=== PATIENT | female | born 1955 | race Caucasian/White ===

== ENCOUNTER 2017-09-07 12:20 | Observation (INO) | payer MEDICARE, MEDICAID ==
[~2017-09-07] VITALS: Ht 167.6 cm; Wt 109.1 kg
--- NOTE | ~2017-09-07 | OP ---
PATIENT NAME: ANTWON IBRAHIM MEDICAL RECORD: [id number] :55 LOCATION:D.M2 D.2115 ADMISSION DATE:09/07/17 SURGEON: FAISAL PAREDES MD DATE OF OPERATION: 09/08/2017 PROCEDURES: 1. Left heart catheterization. 2. Selective coronary angiography. 3. Left ventriculogram. INDICATION: Chest pain compatible with angina. PROCEDURE IN DETAIL: After informed consent was obtained and after a detailed description of risks, benefits as well as alternative therapies, the patient elected to proceed with angiogram and heart catheterization. The right radial area was prepped and draped in normal sterile fashion. Right radial artery was cannulated via modified Seldinger technique with placement of 6-Romanian sheath. All catheters exchanged through this sheath. FINDINGS: Left ventriculogram was performed in standard 30-degree LONG view, reveals good cardiac wall motion throughout all segments. Overall ejection fraction estimated 60%. SELECTIVE CORONARY ANGIOGRAPHY: Left main, left anterior descending, left circumflex, and right coronary artery are all smooth-walled vessels with no angiographic evidence of coronary artery disease. OVERALL IMPRESSION: 1. No angiographic evidence of coronary artery disease. 2. Normal left heart pressures. 3. Normal left ventricular systolic function. Chest pain is noncardiac in etiology. No further cardiac workup needs to be ascertained. TRANSINT:[id number] Voice Confirmation ID: [id number] DOCUMENT ID: [id number] FAISAL PAREDES MD at 1325 CC: [id number] DICTATION DATE: 09/08/17 0931 MANUFACTURING QUALITY TECHNICIAN: 09/08/17 1112 DIS IN 09/08/17 [address] [place] [address]
--- NOTE | ~2017-09-07 | DS ---
PATIENT:ANTWON IBRAHIM :55 MEDICAL RECORD: [id number] DISCHARGE SUMMARY ADMISSION DATE: 09/07/17 DISCHARGE DATE: 09/08/17 DIAGNOSES: 1. Chest pain compatible with angina. 2. Normal cardiac catheterization. 3. Sick sinus syndrome. HOSPITAL COURSE: Mrs. Ibrahim was admitted with chest pain; however, cardiac catheterization was normal. She as well had some bradycardia by her report and some tachyarrhythmias, but no bradycardia or tachyarrhythmias were monitored overnight. Discharged home to continue her 30-day monitor. We will follow up after the 30-day monitor. TRANSINT:[id number] Voice Confirmation ID: [id number] DOCUMENT ID: [id number] FAISAL PAREDES MD at 1325 CC: [id number] DICTATION DATE: 09/08/17929 RECEIVING ASSOCIATE: 09/08/17 1215 DIS IN 09/08/17 [id number] [place] [address]
--- NOTE | ~2017-09-07 | HEMODYNAMI ---
PATIENT:ANTWON IBRAHIM MEDICAL RECORD: [id number] : 55 [facility] ADMISSION DATE: 09/07/17 Generatedon:09/08/20179:28 Patient name: ANTWON IBRAHIM Patient #: [id number] SSN: : 1955 Date of study: 09/08/2017 Page: Of Hemodynamic Procedure Report Patient Data Patient Demographics Procedure consent was obtained First Name: ANTWON Gender: Female Last Name: PATRICE : 1955 [facility] Initial: GABRIEL Age: 61 year(s) Patient #: [id number] Race: Unknown Additional ID: [id number] Contact details [address]: [address] [place] [address] [address] State: [place] City: [place] Zip code: [address] Admission Admission Data Admission Date: 09/07/2017 Admission Time: 12:20 Room #: 2115 Procedure Procedure Types Cath Procedure Diagnostic Procedure LHC LHC w/Coronaries Procedure Description Procedure Date Procedure Date: 09/08/2017 Procedure Start Time: 9:19 Procedure End Time: 9:25 Procedure Staff Name Function Rohan Resendez MD Performing Physician Leila Morales RT Monitor Meg Pack RN Nurse Carol Barfield RT Scrub Procedure Data Cath Procedure Fluoroscopy Diagnostic fluoroscopy Total fluoroscopy Time: 1 time: 1 min min Diagnostic fluoroscopy Total fluoroscopy dose: 241 dose: 241 mGy mGy Contrast Material Contrast Material Type Amount (ml) Isovue 300 28 Entry Location Entry Primary Successful Side Size Upsize Upsize Entry Closure Guerrero ccessful Closure Location (Fr) 1 (Fr) 2 (Fr) Remarks Device Remarks Radial Right 6 Fr Mechanical artery Short Compression Estimated blood loss: 5 ml Diagnostic catheters Device Type Used For End Catheter Placement DIAGNOSTIC [place] 110cm 5 Multi-vessel Fr catheter ([id number]) Angiography Procedure Complications No complications Procedure Medications Medication Administration Route Dosage Oxygen NC 2 l/min Lidocaine 2% added to field 20 Heparin Flush Bag added to field 2 bags (1000units/500ml NS) 0.9% NaCl I.V. 100 ml/hr Versed I.V. 1 mg Fentanyl I.V. 50 mcg Radial Cocktail I.A. 1 syringe (Verapomil 2mg/Nitro 400mcg/Heparin 1500units) Hemodynamics Rest Heart Rate: 50 (bpm) Pressure Samples Time Site Value (mmHg) Purpose Heart Use Rate(bpm) 9:21 LV 112/-1,32 Snapshot 63 Snapshots Pre Cath Intra NCS Post Cath Vital Signs Time Heart Resp SPO2 etCO2 NIBP (mmHg) Rhythm Pain Sedation Rate (ipm) (%) (mmHg) Status Level (bpm) 9:04:07 52 15 97 35 152/83(101) SB 0 (11) 10(A) , No pain 9:08:14 51 11 94 35.8 143/86(99) SB 0 (11) 10(A) , No pain 9:12:28 53 14 99 34.3 146/83(113) SB 0 (11) 10(A) , No pain 9:16:45 54 13 98 35 144/84(112) SB 0 (11) 10(A) , No pain 9:21:03 57 15 97 11.9 135/72(109) SB 0 (11) 9(A) , No pain 9:25:21 63 15 95 33.6 103/64(79) SB 0 (11) 9(A) , No pain 9:28:05 59 15 94 33.5 109/60(75) SB 0 (11) 10(A) , No pain Medications Time Medication Route Dose Verified Delivered Reason Notes E ffectiveness by by 9:03:26 Oxygen NC 2 l/min Rohan Weaver used for Dipti Pack RN procedure 9:03:34 Lidocaine 2% added 20ml Rohan Madrigal for local to vial Dipti Resendez MD anesthetic field 9:03:39 Heparin Flush added 2 bags Rohan Madrigal used for Bag to Dipti Resendez MD procedure (1000units/500ml field NS) 9:03:47 0.9% NaCl I.V. 100 Rohanlamont Barakatie Per ml/hr Dipti Pack RN physician 9:17:35 Versed I.V. 1 mg Rohan Weaver for sedation Dipti Pack RN 9:17:40 Fentanyl I.V. 50 mcg Rohan Weaver for sedation Dipti Pack RN 9:20:52 Radial Cocktail I.A. 1 Rohan Madrigal for (Verapomil syringe Dipti Resendez MD vasodilation 2mg/Nitro 400mcg/Heparin 1500units) Procedure Log Time Note 8:30:57 Leila Morales RT(R) sent for patient. Start room use. 8:42:58 Time tracking: Regular hours (M-F 7:00 - 5:00) 8:43:02 Plan of Care:Hemodynamics will remain stable., Cardiac rhythm will remain stable., Comfort level will be maintained., Respiratory function will remain adequate., Patient/ family verbilizes understanding of procedure., Procedure tolerated without complication., Recovers from procedure without complications.. 8:51:19 Patient received from PCU to CCL 2 Alert and oriented. Tansferred to table in Supine position. 8:51:21 Warm blankets applied, and afshan hugger turned on for patient comfort. 8:51:21 Correct patient and procedure confirmed by team. 8:51:22 Signed procedure consent form obtained from patient. 8:51:23 ECG and BP/O2 sat monitors applied to patient. 9:03:01 Vital chart was started 9:03:02 Baseline sample Acquired. 9:03:06 Rhythm: sinus rhythm 9:03:08 Full Disclosure recording started 9:03:20 H&P Date Dictated: 09/08/2017 Within 30 days and on chart., H&P Addendum completed by physician on day of procedure. (MUST COMPLETE FOR ALL OUTPATIENTS). 9:03:21 Pre-procedure instructions explained to patient. 9:03:22 Pre-op teaching completed and patient verbalized understanding. 9:03:24 Family in waiting room. 9:03:25 Patient NPO since Midnight. 9:03:26 Oxygen 2 l/min NC was administered by Meg Pack RN; used for procedure; 9:03:28 Is the patient allergic to Iodine/contrast media? No. 9:03:29 Was the patient premedicated? No 9:03:30 Is patient on blood thinner?No 9:03:31 Patient diabetic? Yes. 9:03:32 If diabetic: On Metformin? No 9:03:34 Lidocaine 2% 20ml vial added to field was administered by Rohan Resendez MD; for local anesthetic; 9:03:34 Previous problem with sedation/anesthesia? No ? 9:03:37 Snore? Yes 9:03:38 Sleep apnea? No 9:03:39 Heparin Flush Bag (1000units/500ml NS) 2 bags added to field was administered by Rohan Resendez MD; used for procedure; 9:03:39 Deviated septum? No 9:03:39 Opens mouth fully? Yes 9:03:40 Sticks out tongue? Yes 9:03:42 Airway obstruction? No ? 9:03:45 Dentures? No ? 9:03:47 0.9% NaCl 100 ml/hr I.V. was administered by Meg Pack RN; Per physician; 9:03:48 Pre procedure: right dorsailis pedis pulse 2+ Normal; easily identifiable; not easily obliterated 9:03:56 Patient pain scale 0/10 ?. 9:04:03 IV patent on arrival in left wrist with 0.9% NaCl at KVO. 9:04:05 Lab results completed and on chart. 9:04:10 Right Radial & Right Groin area was prepped with chlora-prep and draped in sterile fashion 9:04:11 Alarms reviewed by R. N. 9:04:11 Sharps counted by scrub and verified by R.N. 9:08:30 Physician paged 9:08:44 Zero performed for pressure channel P1 9:15:23 Physician arrived 9:15:24 --------ALL STOP TIME OUT------ 9:15:25 Final Timeout: patient, procedure, and site verified with staff and physician. All members of the team are in agreement. 9:15:28 Right Radial & Right Groin site verified by team. 9:15:31 Physical assessment completed. ASA score P 2 - A patient with mild systemic disease as per Rohan Resendez MD. 9:15:35 Sedation plan: IV Moderate Sedation Medication:Versed, Fentanyl 9:15:52 Use device set Radial Dx or PCI 9:15:53 ACIST Syringe (26256) opened to sterile field. 9:15:53 Medline Cath Pack ([id number]) opened to sterile field. 9:15:53 Bag Decanter () opened to sterile field. 9:15:54 DIAGNOSTIC WIRE .035 260cm J wire (944350) opened to sterile field. 9:15:54 ACIST Hand Control (19846) opened to sterile field. 9:15:55 ACIST Manifold (43968) opened to sterile field. 9:15:55 Tegaderm 4 x 4 (1626W) opened to sterile field. 9:15:56 MBrace Wrist Support ([id number]) opened to sterile field. 9:15:57 SHEATH 6Fr Prelude Radial ([id number]) opened to sterile field. 9:17:35 Versed 1 mg I.V. was administered by Meg Pack RN; for sedation; 9:17:40 Fentanyl 50 mcg I.V. was administered by Meg Pack RN; for sedation; 9:19:03 Procedure started. 9:19:07 Local anesthetic to right radial artery with Lidocaine 2% by Rohan Resendez MD.INITIAL ACCESS ONLY 9:19:15 A 6 Fr Short sheath was inserted into the Right Radial artery 9:20:18 A DIAGNOSTIC [place] 110cm 5 Fr catheter (908506) was advanced over the wire and used for Multi-vessel Angiography. 9:20:52 Radial Cocktail (Verapomil 2mg/Nitro 400mcg/Heparin 1500units) 1 syringe I.A. was administered by Rohan Resendez MD; for vasodilation; 9:21:33 LV hemodynamics recorded. 9:21:34 LV gram done using LONG 9:21:39 Injector settings: Ml/sec: 5, Volume: 15, 9:21:45 EF : 50 % 9:21:51 LCA angiography performed. 9:22:03 Injector settings: Ml/sec: 3, Volume: 6, 9:22:52 RCA angiography performed. 9:22:56 Injector settings: Ml/sec: 3, Volume: 6, 9:23:09 Catheter removed. 9:23:17 TR BAND Standard ([id number]) opened to sterile field. 9:23:33 Sheath removed intact; hemostasis achieved with Mechanical Compression to the Right Radial artery. 9:23:52 Procedure ended.(Physican Out) 9:24:23 Fluoroscopy time 01.00 minutes. 9:24:27 Fluoroscopy dose: 241 mGy 9:24:27 Flurop Dose total: 241 9:24:30 Contrast amount:Isovue 300 28ml. 9:24:35 Sharps counted by scrub and verified by R.N. 9:24:38 TR band inflated with 10cc of air. 9:24:39 Insertion/operative site no bleeding no hematoma. 9:24:43 Post right radial artery:stable 9:24:45 Post Procedure Pulses reassessed and unchanged 9:24:47 Post procedure rhythm: unchanged. 9:24:50 Estimated blood loss: 5 ml 9:24:51 Post procedure instruction explained to patient.Patient verbalizes understanding. 9:24:52 Patient needs reinforcement of post procedure teaching. 9:25:01 Procedure and supply charges have been captured, reviewed, submitted and are correct. 9:25:06 Procedure Complication : No complications 9:25:08 Vital chart was stopped 9:25:09 See physician's report for complete and final results. 9:25:26 Report given to Med II. 9:25:28 Patient transfered to Med II with Stretcher. 9:25:30 Procedure ended. 9:25:30 Full Disclosure recording stopped 9:25:35 End room use (Document Last) Device Usage Item Name Manufacture Quantity Catalog Number Hospital Part Current M inimal Lot# / Charge Number Stock Stock Serial# Code ACIST Syringe Acist 1 51095 700973 779234 [id number] 2 0 (85967) [employer] Medline Cath Cardinal 1 [id number] 412993 61109 438194 5 [facility] ([id number]) Bag Decanter Microtek 1 2001S 391521 93794 199161 5 (2001S) Medical Inc. DIAGNOSTIC WIRE [place] 1 396638 770211 669896 590155 3 0 .035 260cm J wire (935427) ACIST Hand Acist 1 05136 703027 933826 011656 5 Control (70173) [employer] ACIST Manifold Acist 1 27959 838029 348354 892559 5 (42040) [employer] Inc Tegaderm 4 x 4 3M 1 1626W 029113 100265 234885 5 (1626W) MBrace Wrist Advanced 1 140-0250-00 544125 01549 093046 5 Support Vascular ([id number]) Dynamics SHEATH 6Fr Merit 1 [id number] 566988 171027 161458 5 Prelude Radial Medical ([id number]) DIAGNOSTIC Terumo 1 90-8238 055555 316569 999585 5 [place] 110cm 5 Fr catheter (914316) TR BAND Terumo 1 [id number] 418597 068923 177710 4 0 Standard ([id number]) Signature Audit [place] Stage Time Signature Unsigned Intra-Procedure 09/08/2017 Leila Morales 9:28:42 AM RT(R) Signatures Monitor : Leila Morales RT Signature : Date : Time : [facility] [address] [facility] [place] [address]
[2017-09-07 13:26] LABS: BASOPHILS 0.3 % (0-2); EOSINOPHILS 2.2 % (0-7); HEMATOCRIT 37.5 % (36.0-48.0); HEMOGLOBIN 12.4 g/dL (12-16); LYMPHOCYTES 17.9 % (15-50); MCH 29.3 pg (26.0-34.0); MCHC 33.1 g/dL (31.0-37.0); MCV 88.7 fL (80.0-100.0); MEAN PLATELET VOLUME 10.8 fL (7.4-10.4); MONOCYTES 5.8 % (2-11); NEUTROPHILS 73.8 % (40-80); PLATELET COUNT 109 10x3/uL (130-400); RBC 4.23 10x6/uL (4.00-5.40); RDW 13.8 % (11.5-14.5); WBC 6.7 10x3/uL (4.8-10.8)
[2017-09-07] MEDS ORDERED: NEURONTIN 300300 MG PO (13:41)
[2017-09-07] MEDS ORDERED: TOPAMAX200 MG PO (13:42)
[2017-09-07] MEDS ORDERED: MINIPRESS1 MG PO (13:44)
[2017-09-07] MEDS ORDERED: RISPERDAL0.5 MG PO (13:44)
[2017-09-07] MEDS ORDERED: XYZAL5 MG PO (13:45)
[2017-09-07] MEDS ORDERED: BUPROPION XL150 MG PO (13:45)
[2017-09-07] MEDS ORDERED: ZOLOFT100 MG PO (13:46)
[2017-09-07] MEDS ORDERED: GLYCOLAX527 GM PO (13:47)
[2017-09-07] MEDS ORDERED: MOBIC7.5 MG PO (13:48)
[2017-09-07] MEDS ORDERED: LIPITOR40 MG PO (13:48)
[2017-09-07] MEDS ORDERED: BAYER CHEWABLE81 MG PO (13:49)
[2017-09-07] MEDS ORDERED: VITAMIN D3400 UNI1 PO (13:50)
[2017-09-07] MEDS ORDERED: C-10001000 MG PO (13:51)
[2017-09-07] MEDS ORDERED: OMEGA-3100 MG PO (13:51)
[2017-09-07] MEDS ORDERED: MULTIPLE VITAMI1 TA1 PO (13:52)
[2017-09-07 14:08] LABS: ANION GAP 11.2 mmol/L (8-16); CALCIUM 8.8 mg/dL (8.5-10.1); CARBON DIOXIDE 27.2 mmol/L (21.0-32.0); POTASSIUM - SERUM 3.4 mmol/L (3.5-5.1)
[2017-09-07 15:45] VITALS: BP 108/63; Ht 167.6 cm; Wt 109.1 kg
[2017-09-07] MEDS ORDERED: DITROPAN X10 MG/BOTT PO (21:20)
[2017-09-07] MEDS ORDERED: MYRBETRIQ25 MG PO (21:21)
[2017-09-07 21:35] VITALS: BP 137/75
[2017-09-08 01:10] VITALS: BP 115/71
[2017-09-08 05:05] VITALS: BP 114/74
[2017-09-08 08:16] VITALS: BP 102/63
[2017-09-08 11:14] VITALS: BP 120/71
== END 2017-09-08 12:15 | disposition home or self-care (01) ==
LOC: OBSVTIME 12:20 → D.M2 12:20
PROVIDERS: Internal Medicine Interventional Cardiology
DX: R07.89 Other chest pain (principal); I49.5 Sick sinus syndrome